=== PATIENT | female | born 1975 | race American Indian/Alaskan Native ===

== ENCOUNTER 2021-07-02 06:46 | Emergency (ER) | payer OTHER, SELFPAY ==
[2021-07-02 06:55] VITALS: BP 171/88; BP 171/89; PULSE 110; PULSE 111; RESP 20; TEMP 36.6; O2SAT 100; O2SAT 98
--- NOTE | 2021-07-02 07:23 | ED_ITS ---
HPI - General Adult General Chief complaint: Abdominal Pain Stated complaint: Very bad stomach pain Time Seen by Provider: 07/02/21 07:03 Source: patient Mode of arrival: Ambulatory Limitations: no limitations History of Present Illness HPI narrative: Patient is a 45-year-old female here for evaluation for jerrya matheus 1 week of left lower quadrant/lower abdomen discomfort. She is unsure as to what she was doing when the symptoms started however has been consistent over the past week. Had some nausea vomiting a couple days ago that is resolved. No urinary symptoms. Has had some diarrhea. She states that when she has a bowel movement her abdominal pain worsens. No vaginal bleeding. No prior abdominal surgeries. No chest pain. No shortness of breath. No headache. No vision changes. No rashes. No lower extremity swelling. Has been taking Tylenol for the discomfort without much improvement. Review of Systems Constitutional Constitutional: Denies headache(s) ENT Ears, Nose, Mouth, and Throat: Denies headache(s) Cardiovascular Cardiovascular: Reports system reviewed and no additional complaints, except as documented Respiratory Respiratory: Reports system reviewed and no additional complaints, except as documented Gastrointestinal Gastrointestinal: Reports as per HPI Genitourinary Genitourinary: Reports system reviewed and no additional complaints, except as documented Musculoskeletal Musculoskeletal: Reports system reviewed and no additional complaints, except as documented Integumentary/Breasts Skin/Breast: Reports system reviewed and no additional complaints, except as documented Neurologic Neurologic: Denies headache(s) Psychiatric Psychiatric: Reports system reviewed and no additional complaints, except as documented Hematologic/Lymphatic On Anticoagulants: No Allergic/Immunologic Allergic/Immunologic: Reports system reviewed and no additional complaints, except as documented Patient History Medical History Patient denies medical problems Social History Smoking Status: Never smoker Smoking Status: Never smoker alcohol intake frequency: a few times a month Substance Use Type: does not use Exam Initial Vital Signs Initial Vital Signs: Vital Signs Temperature 97.8 F 07/02/21 06:55 Pulse Rate 111 H 07/02/21 06:55 Respiratory Rate 20 07/02/21 06:55 Blood Pressure 171/88 H 07/02/21 06:55 Pulse Oximetry 100 07/02/21 06:55 Const General: cooperative, comfortable and well developed [facility] Head: normal to inspection and normocephalic Resp Effort & Inspection: normal respiratory effort Auscultation: clear to auscultation bilaterally Cardio Rate: regular rate Rhythm: regular rhythm GI Inspection: normal to inspection Palpation: soft, No firm and tender (Left lower abdomen than) Back/Spine/Pelvis Back: No CVA tenderness Skin General: no rashes or lesions noted Neuro General: patient alert, patient awake, patient oriented x3 and moves all extremities Extrem General: normal to inspection and capillary refill normal Psych Appearance: grossly normal and well kempt Course Orders Ordered: ED Orders 07/02/21 07:23 CT abdomen pelvis w con Stat 07/02/21 07:24 Complete Blood Count AUTO DIFF Stat Comprehensive Metabolic Panel Stat Lipase Stat Discontinued Medications Sodium Chloride (Normal Saline 0.9%) 1,000 mls @ 1,000 mls/hr IV BOLUS ONE Stop: 07/02/21 08:07 Last Admin: 07/02/21 08:11 Dose: 1,000 mls/hr Documented by: KAMILAH Vital Signs Vital signs: Vital Signs - 8 hr 07/02/21 06:55 Temperature 97.8 F Pulse Rate 111 H Respiratory Rate 20 Blood Pressure 171/88 H Pulse Oximetry 100 Medical Decision Making Lab Data Lab results reviewed: Yes I reviewed the patient's lab results. Result diagrams: 07/02/21 07:24 07/02/21 07:24 Labs: Lab Results 07/02/21 07/02/21 Range/Units 07:24 07:24 WBC 4.5 (4.5-11.0) X10^3/uL RBC 4.82 (4.0-5.2) X10^6/uL Hgb 14.3 (12.0-16.0) g/dL Hct 42.0 (36-46) % MCV 87.3 (80-100) fL MCH 29.8 (26-34) PG MCHC 34.1 (30-36) % RDW 13.0 (11.6-14.8) % Plt Count 238 (150-400) X10^3/uL Neut % (Auto) 45.9 L (50-75) % Lymph % (Auto) 42.8 H (25-40) % Ware % (Auto) 9.9 (3-14) % Eos % (Auto) 0.9 L (2-4) % Baso % (Auto) 0.5 (0-2) % Neut # (Auto) 2000 (2452-2108) /uL Lymph # (Auto) 1900 (2125-7008) /uL Ware # (Auto) 400 (0-900) /uL Eos # (Auto) 0 (0-450) /uL Baso # (Auto) 0 (0-100) /uL Sodium 131 L (137-145) mmol/L Potassium 3.8 (3.4-5.1) mmol/L Chloride 97 L (98-107) mmol/L Carbon Dioxide 24 (22-32) mmol/L BUN 10 (7-17) mg/dL Creatinine 0.50 L (0.52-1.04) mg/dL Estimated GFR > 60.0 (>60) mL/min BUN/Creatinine Ratio 20.0 (6-22) Glucose 116 H (70-100) mg/dL Calcium 8.6 (8.4-10.2) mg/dL Total Bilirubin 0.4 (0.2-1.3) mg/dL AST 48 H (14-36) IU/L ALT 45 H (<35) IU/L Alkaline Phosphatase 95 (38-126) U/L Total Protein 8.0 (6.3-8.2) g/dL Albumin 4.7 (3.5-5.0) g/dL Globulin 3.3 (1.7-4.1) g/dL Albumin/Globulin Ratio 1.4 (1.0-2.8) Lipase 142 (23-300) U/L Point of Care Testing Test Results Negative Urine Dip Bedside Urine Glucose Negative Bedside Urine Bilirubin - Negative Bedside Urine Ketone - Negative Urine Specific [place] 1.010 Bedside Urine Occult Blood +/- Bedside Urine pH 6.0 Bedside Urine Protein - Negative Bedside Urine Urobilinogen 0.2 Bedside Urine Nitrite - Negative Bedside Urine Leukocytes - Negative Esterase Point of care testing: Point of Care Testing Test Results Negative Urine Dip Bedside Urine Glucose Negative Bedside Urine Bilirubin - Negative Bedside Urine Ketone - Negative Urine Specific [place] 1.010 Bedside Urine Occult Blood +/- Bedside Urine pH 6.0 Bedside Urine Protein - Negative Bedside Urine Urobilinogen 0.2 Bedside Urine Nitrite - Negative Bedside Urine Leukocytes - Negative Esterase Imaging Data CT scan - abdomen/pelvis: Radiologist's Impression: [address] [id number] Scan ReportSigned Patient: Sayda Eller KMR#: [id number]: 1975Acct:[id number]/Sex: 45 / FDate of Service: 07/02/21Loc: EDAccession Number: [id number] Procedure: CT abdomen pelvis w con Ordering Provider: See Buchanan D.O. PROCEDURE: CT ABDOMEN PELVIS W CON INDICATIONS: Left-sided abdominal pain TECHNIQUE: After the administration of IV contrast, axial sections were acquired from the lung bases to the pubic symphysis. Coronal and sagittal reformats were performed. For radiation dose reduction, the following was used: automated exposure control, adjustment of mA and/or kV according to patient size. COMPARISON: None. FINDINGS: Image quality: Excellent. Lung bases: Punctate nodule at the left lung base. No pleural effusion. Small hiatal hernia. Heart: No significant findings. ABDOMEN: Liver: No focal lesion. Gallbladder: No calcified gallstones. Biliary ducts: No dilatation. Pancreas: Enhances symmetrically. Spleen: No splenomegaly. Adrenal Glands: No nodule. Kidneys and Ureters: No hydronephrosis. Stomach and Bowel: Stomach, small bowel loops, and colon are unremarkable. Normal appendix. Peritoneum: No abnormal intraperitoneal fluid. No free air. Ventral Wall: No hernia. Abdominal Nodes: No retroperitoneal or mesenteric adenopathy by size criteria. Vessels: Aorta and inferior vena cava are normal in size. PELVIS: Pelvic Organs: Suspect small ovarian cysts or dominant follicles. Bladder: Unremarkable. Pelvic Nodes: No enlarged lymph nodes. Miscellaneous: No inguinal hernias are seen. Bones: Bone island in the left iliac. IMPRESSION: No acute abnormality identified. No free fluid. Dictated by: Daniel Clark M.D. on 07/02/2021 at 7:46 Approved by: Daniel Clark M.D. on 07/02/2021 at 7:52 MDM Narrative Medical decision making narrative: Her labs are unremarkable. CT scan is unremarkable. No indication for surgical consultation. No indication for antibiotics. Upon further evaluation of the patient she does have a clumped rash in the skin in her left lower quadrant. There are no vesicles. There is no surrounding erythema. She did not know that this rash was there. It is in the general location of where she is having discomfort however her discomfort seems to be deeper in her abdomen and not on the skin. She has no rash along the same dermatome. I do have low suspicion for shingles based on the findings today. Even if it was shingles it does appear to be healing is there are no new crusting/vesicles. She has also had the symptoms for the past week so I feel that anti viral medications are not warranted in this situation. I did discuss all this with her. We discussed return precautions and follow-up instructions. She expressed understanding and agreement. Discharge Plan Departure Patient Disposition: Home Clinical Impression: Abdominal pain Instructions: DI for Abdominal Pain-Adult Activity Restrictions/Additional Instructions: The good news is is that the CT scan all of your labs today are unremarkable. There is no signs of any surgical issues. No signs of any infectious issues. I recommend that you try medicine called simethicone. You can purchase this [id number]. It may improve some of your symptoms. Contact your primary doctor for a follow-up. If your symptoms worsen or if the rash on your abdomen becomes worse you do need to be re-evaluated. Referrals: Michael Chua MD [Primary Care Provider] - Stand Alone Forms: Work Release Note
[2021-07-02 07:30] LABS: Add Manual Diff / Slide Review NO; Basophils Absolute Auto 0 /uL (0-100); Basophils Percent Auto 0.5 % (0-2); Eosinophils Absolute Auto 0 /uL (0-450); Eosinophils Percent Auto 0.9 % (2-4); Hemoglobin 14.3 g/dL (12.0-16.0); Lymphocytes Absolute Auto 1900 /uL (1100-4500); Lymphocytes Percent Auto 42.8 % (25-40); Mean Corpuscular HGB Conc 34.1 % (30-36); Mean Corpuscular Hemoglobin 29.8 PG (26-34); Mean Corpuscular Volume 87.3 fL (80-100); Monocytes Absolute Auto 400 /uL (0-900); Monocytes Percent Auto 9.9 % (3-14); Neutrophils Absolute Auto 2000 /uL (1500-7000); Neutrophils Percent Auto 45.9 % (50-75); Platelet Count 238 X10^3/uL (150-400); Red Blood Cell Count 4.82 X10^6/uL (4.0-5.2); White Blood Cell Count 4.5 X10^3/uL (4.5-11.0)
[2021-07-02 07:42] LABS: Alanine Aminotransferase 45 IU/L (<35); Albumin 4.7 g/dL (3.5-5.0); Albumin Globulin Ratio 1.4 (1.0-2.8); Alkaline Phosphatase 95 U/L (38-126); Aspartate Aminotransferase 48 IU/L (14-36); Bilirubin Total 0.4 mg/dL (0.2-1.3); Blood Urea Nitrogen 10 mg/dL (7-17); Calcium 8.6 mg/dL (8.4-10.2); Carbon Dioxide 24 mmol/L (22-32); Chloride 97 mmol/L (98-107); Estimated Glomerular Filt Rate > 60.0 mL/min (>60); Globulin 3.3 g/dL (1.7-4.1); Glucose 116 mg/dL (70-100); HEMOLYSIS < 15 (0-50); Lipase 142 U/L (23-300); Potassium 3.8 mmol/L (3.4-5.1); Sodium 131 mmol/L (137-145)
[2021-07-02] MEDS: SODIUM CHLORIDE 0.9% 1,000 ML 1000 ML IV (08:11)
[2021-07-02 09:20] VITALS: BP 140/68; PULSE 78; RESP 18; O2SAT 98
--- NOTE | 2021-07-07 19:32 | PC.NURSE ---
Late entry Normal Saline completed around 0900
== END 2021-07-02 09:28 | disposition home or self-care (01) ==
PROVIDERS: Emergency Provider Emergency Medicine; PCP Family Medicine
DX: R10.32 Left lower quadrant pain (principal)
CPT/HCPCS: 36415; 74177; 80053; 81003; 81025; 83690; 85025; 96360; 99284; Q9967

== ENCOUNTER 2022-04-17 10:39 | Emergency (ER) | payer OTHER, SELFPAY ==
[2022-04-17 10:40] VITALS: BP 169/98; PULSE 109; RESP 16; TEMP 36.6; O2SAT 97; BMI 26.8
[2022-04-17 11:33] LABS: Add Manual Diff / Slide Review NO; Basophils Absolute Auto 0 /uL (0-100); Basophils Percent Auto 0.5 % (0-2); Eosinophils Absolute Auto 0 /uL (0-450); Eosinophils Percent Auto 0.6 % (2-4); Hematocrit 43.7 % (36-46); Hemoglobin 15.4 g/dL (12.0-16.0); Lymphocytes Absolute Auto 700 /uL (1100-4500); Lymphocytes Percent Auto 24.3 % (25-40); Mean Corpuscular HGB Conc 35.2 % (30-36); Mean Corpuscular Hemoglobin 30.2 PG (26-34); Mean Corpuscular Volume 85.8 fL (80-100); Monocytes Absolute Auto 300 /uL (0-900); Monocytes Percent Auto 10.5 % (3-14); Neutrophils Absolute Auto 1900 /uL (1500-7000); Neutrophils Percent Auto 64.1 % (50-75); Platelet Count 119 X10^3/uL (150-400); Red Blood Cell Count 5.09 X10^6/uL (4.0-5.2); Red Cell Distribution Width 12.9 % (11.6-14.8); White Blood Cell Count 2.9 X10^3/uL (4.5-11.0)
[2022-04-17 11:36] LABS: Alanine Aminotransferase 83 IU/L (<35); Albumin 4.9 g/dL (3.5-5.0); Albumin Globulin Ratio 1.2 (1.0-2.8); Alkaline Phosphatase 84 U/L (38-126); Aspartate Aminotransferase 98 IU/L (14-36); BUN Creatinine Ratio 18.8 (6-22); Bilirubin Total 0.9 mg/dL (0.2-1.3); Blood Urea Nitrogen 13 mg/dL (7-17); Calcium 9.2 mg/dL (8.4-10.2); Carbon Dioxide 30 mmol/L (22-32); Chloride 93 mmol/L (98-107); Estimated Glomerular Filt Rate > 60 mL/min (>60); Glucose 124 mg/dL (70-100); HEMOLYSIS < 15 (0-50); Lipase 189 U/L (23-300); Potassium 3.5 mmol/L (3.4-5.1); Sodium 134 mmol/L (137-145); Total Protein 8.9 g/dL (6.3-8.2)
[2022-04-17 12:16] VITALS: BP 117/74; PULSE 96; RESP 16; O2SAT 99
--- NOTE | 2022-04-17 12:49 | ED.ABDPAIN ---
HPI - Abdominal Pain General Chief Complaint: Abdominal Pain Stated Complaint: lower abd pain Time Seen by Provider: 04/17/22 12:15 Source: EMS Mode of arrival: EMS History of Present Illness HPI narrative: Patient is a 46-year-old female without past medical history presenting with 11 days of ongoing lower abdominal pain. The more on the right than the left however she does have a rash on the left side which actually seems to be healing. She describes as a burning pain. She denies any diarrhea or constipation no nausea vomiting. She has not had any fever. Healing take a couple Tylenol as needed for pain. However due to ongoing pain in worse on the right side she came in. Related Data Allergies Allergy/AdvReac Type Severity Reaction Status Date / Time No Known Drug Allergies Allergy Verified 04/17/22 10:44 Review of Systems Review of Systems Narrative: GENERAL: Denies chills, fatigue, malaise, fever, sweats, travel HEENT: Denies sinus pain, ear pain, sore throat, difficulty swallowing, neck pain RESPIRATORY: Denies dyspnea, cough, wheezing, hemoptysis, sputum. CARDIOVASCULAR: Denies chest pain, palpitations, orthopnea, edema GASTROINTESTINAL: See HPI : Denies dysuria, frequency, incontinence, hematuria, urinary retention, flank pain. MUSCULOSKELETAL: Denies weakness, joint pain, or bony pain SKIN: See HPI NEUROLOGIC: Denies weakness, dizziness, headache, numbness, change in speech, confusion PSYCHIATRIC: No concerning psychosocial issues. 12 point review of systems is negative except for those stated above and HPI Patient History Medical History Patient denies medical problems Social History Smoking Status: Never smoker Smoking Status: Never smoker alcohol intake frequency: a few times a month Substance Use Type: does not use Exam Initial Vital Signs Initial Vital Signs: Vital Signs Temperature 97.8 F 04/17/22 10:40 Pulse Rate 109 H 04/17/22 10:40 Respiratory Rate 16 04/17/22 10:40 Blood Pressure 169/98 H 04/17/22 10:40 Pulse Oximetry 97 04/17/22 10:40 Oxygen Delivery Method 04/17/22 10:40 GENERAL: Alert well-appearing 46-year-old female and in no acute distress. HEENT: Head atraumatic,EOMI, pupils reactive, face symmetric, moist mucous membranes CARDIOVASCULAR: Regular rate and rhythm without murmurs, rubs or gallops. RESPIRATORY: Breath sounds equal bilaterally, no wheezes rales or rhonchi. ABDOMEN: Soft, tenderness right lower quadrant some across the lower abdomen : No CVA tenderness EXTREMITIES: Normal range of motion, no clubbing or edema. Neurovascularly intact NEUROLOGICAL: Alert and oriented x4.Normal gait and speech. SKIN: Scabbed over the psis killer like lesions in left lower quadrant no surrounding erythema does not cross midline Course Orders Ordered: ED Orders 04/17/22 10:44 EKG-12 Lead Stat 04/17/22 10:57 Complete Blood Count AUTO DIFF Stat Comprehensive Metabolic Panel Stat Lipase Stat 04/17/22 12:53 Urine Microscopic Stat 04/17/22 13:15 CT abdomen pelvis wo con Stat Discontinued Medications Ketorolac Tromethamine (Ketorolac 30 Mg/Ml Vial) 15 mg IV NOW ONE Stop: 04/17/22 14:06 Last Admin: 04/17/22 14:17 Dose: 15 mg Documented By: CTS Vital Signs Vital signs: Vital Signs - 8 hr 04/17/22 12:16 04/17/22 14:02 Pulse Rate 96 H 84 Respiratory Rate 16 16 Blood Pressure 117/74 130/58 L Pulse Oximetry 99 99 Oxygen Delivery Method Room Air MDM - Abdominal Pain Lab Data Result diagrams: 04/17/22 10:57 04/17/22 10:57 Labs: Lab Results 04/17/22 04/17/22 04/17/22 Range/Units 10:57 10:57 12:53 WBC 2.9 L (4.5-11.0) X10^3/uL RBC 5.09 (4.0-5.2) X10^6/uL Hgb 15.4 (12.0-16.0) g/dL Hct 43.7 (36-46) % MCV 85.8 (80-100) fL MCH 30.2 (26-34) PG MCHC 35.2 (30-36) % RDW 12.9 (11.6-14.8) % Plt Count 119 L (150-400) X10^3/uL Neut % (Auto) 64.1 (50-75) % Lymph % (Auto) 24.3 L (25-40) % [place] % (Auto) 10.5 (3-14) % Eos % (Auto) 0.6 L (2-4) % Baso % (Auto) 0.5 (0-2) % Neut # (Auto) 1900 (2338-3476) /uL Lymph # (Auto) 700 L (0295-7109) /uL [place] # (Auto) 300 (0-900) /uL Eos # (Auto) 0 (0-450) /uL Baso # (Auto) 0 (0-100) /uL Sodium 134 L (137-145) mmol/L Potassium 3.5 (3.4-5.1) mmol/L Chloride 93 L (98-107) mmol/L Carbon Dioxide 30 (22-32) mmol/L BUN 13 (7-17) mg/dL Creatinine 0.69 (0.52-1.04) mg/dL Estimated GFR > 60 (>60) mL/min BUN/Creatinine Ratio 18.8 (6-22) Glucose 124 H (70-100) mg/dL Calcium 9.2 (8.4-10.2) mg/dL Total Bilirubin 0.9 (0.2-1.3) mg/dL AST 98 H (14-36) IU/L ALT 83 H (<35) IU/L Alkaline Phosphatase 84 (38-126) U/L Total Protein 8.9 H (6.3-8.2) g/dL Albumin 4.9 (3.5-5.0) g/dL Globulin 4.0 (1.7-4.1) g/dL Albumin/Globulin Ratio 1.2 (1.0-2.8) Lipase 189 (23-300) U/L Urine RBC 1-5/hpf (0-5/HPF) Urine WBC None seen (0-5/HPF) Ur Squamous Epith Cells 0-1 /hpf (0-5/HPF) Urine Bacteria None seen (None) Ur Culture Indicated? Cult not indicated Point of care testing: Urine Dip Bedside Urine Glucose Negative Bedside Urine Bilirubin - Negative Bedside Urine Ketone - Negative Urine Specific [place] 1.010 Bedside Urine Occult Blood + Bedside Urine pH 6.0 Bedside Urine Protein - Negative Bedside Urine Urobilinogen - Negative Bedside Urine Nitrite - Negative Bedside Urine Leukocytes - Negative Esterase Imaging Data CT scan - abdomen/pelvis: Radiologist's Impression: CT Scan Report Signed Patient: Sayda Eller MR#: [id number] : 1975 Acct:[id number] Age/Sex: 46 / F Date of Service: 04/17/22 Loc: ED Accession Number: [id number] ?? Procedure: CT abdomen pelvis wo con Ordering Provider: Elzbieta Polanco D.O. PROCEDURE:? CT ABDOMEN PELVIS WO CON ? INDICATIONS:? rlq pain ? TECHNIQUE:? Noncontrast 5 mm thick sections acquired from the diaphragms to the symphysis.? 5 mm coronal and sagittal reformats were then performed.? For radiation dose reduction, the following was used:? automated exposure control, adjustment of mA and/or kV according to patient size.? ? COMPARISON:? [facility], CT, CT ABDOMEN PELVIS W CON, 07/02/2021, 7:46. ? FINDINGS:? Image quality:? Excellent.? ? ABDOMEN:? Lung bases:? Lung bases are clear.? Heart size is normal.? ? Solid organs:? Liver is normal in size.? Gallbladder is normal .? Pancreas is normal in contours.? Spleen is normal in size.? No adrenal nodules.? Kidneys are normal in size, without hydronephrosis or nephrolithiasis.? ? Peritoneum and bowel:? Unenhanced bowel loops demonstrate normal wall thickness and caliber.? No free fluid or air.? The appendix is normal.? ? Nodes and vessels:? No retroperitoneal or mesenteric adenopathy by size criteria.? Aorta and inferior vena cava are normal in caliber.? ? Miscellaneous:? No ventral hernias.? ? ? PELVIS:? Genitourinary:? Bladder wall thickness is normal.? ? Miscellaneous:? No inguinal hernias or adenopathy.? ? Bones:? No suspicious bony lesions.? No vertebral body compression fractures. Spine degenerative disc disease and facet arthropathy. ? ? IMPRESSION:? ? 1. No acute disease. ? 2. Appendix is normal.? ? 3. No free fluid or free air.? ? 4. No dilated loops of bowel or bowel wall thickening. ? ? ? Dictated by: Marlen Gatica MD, PhD on 04/17/2022 at 13:22 MDM Narrative Medical decision making narrative: Patient has a rash she says ongoing for at least 6 days it is highly suspicious for shingles. There are no new lesions is no underlying cellulitis but she still having pain and discomfort. Since is been ongoing for the last 6 days no indication to start antiviral medications. She is offered hydrocodone but declines at this time and like to just take Tylenol and ibuprofen. Abdominal CT is negative. WBC is slightly low at 2.9 suspicious for probable shingles. She does not appear septic. She is afebrile. Discharge Plan Departure Patient Disposition: Home Clinical Impression: Abdominal pain Herpes zoster Qualifiers: Herpes zoster complications: without complications Qualified Code(s): B02.9 - Zoster without complications Instructions: Shingles, DI for Abdominal Pain-Adult Activity Restrictions/Additional Instructions: *You have been diagnosed with shingles and abdominal pain *What to do: At this time out of window to benefit from antiviral medications for shingles. Recommend pain medication only with. Please monitor your abdominal pain. Today her CT is negative. May need to have your blood work recheck your WBC count today is slightly low at 2.9. *Continue to take medications as directed Tylenol 1000 mg every 8 hours if needed for [id number] pain Motrin 600 mg every 8 hours if needed for [id number] pain *Follow up with your primary care provider in 2-3 days or call [phone] *Return to ER if you should have increasing pain, worsening rash, fever or any new, worsening or concerning symptoms Referrals: Michael Chua MD [Primary Care Provider] - Visit Report Forms: Patient Portal/API
[2022-04-17 13:12] LABS: Bacteria Urine None Seen; Culture Indicated Urine Cult Not Indicated; RBC Urine 1-5/HPF (0-5/HPF); Squamous Epithelial Cell Urine 0-1 /HPF (0-5/HPF); WBC Urine None Seen (0-5/HPF)
--- NOTE | 2022-04-17 13:15 | DI.CT.S_ITS ---
PROCEDURE: CT ABDOMEN PELVIS WO CON INDICATIONS: rlq pain TECHNIQUE: Noncontrast 5 mm thick sections acquired from the diaphragms to the symphysis. 5 mm coronal and sagittal reformats were then performed. For radiation dose reduction, the following was used: automated exposure control, adjustment of mA and/or kV according to patient size. COMPARISON: [facility], CT, CT ABDOMEN PELVIS W CON, 07/02/2021, 7:46. FINDINGS: Image quality: Excellent. ABDOMEN: Lung bases: Lung bases are clear. Heart size is normal. Solid organs: Liver is normal in size. Gallbladder is normal . Pancreas is normal in contours. Spleen is normal in size. No adrenal nodules. Kidneys are normal in size, without hydronephrosis or nephrolithiasis. Peritoneum and bowel: Unenhanced bowel loops demonstrate normal wall thickness and caliber. No free fluid or air. The appendix is normal. Nodes and vessels: No retroperitoneal or mesenteric adenopathy by size criteria. Aorta and inferior vena cava are normal in caliber. Miscellaneous: No ventral hernias. PELVIS: Genitourinary: Bladder wall thickness is normal. Miscellaneous: No inguinal hernias or adenopathy. Bones: No suspicious bony lesions. No vertebral body compression fractures. Spine degenerative disc disease and facet arthropathy. IMPRESSION: 1. No acute disease. 2. Appendix is normal. 3. No free fluid or free air. 4. No dilated loops of bowel or bowel wall thickening. Dictated by: Marlen Gatica MD, PhD on 04/17/2022 at 13:22 Approved by: Marlen Gatica MD, PhD on 04/17/2022 at 13:27
[2022-04-17 14:02] VITALS: BP 130/58; PULSE 84; RESP 16; O2SAT 99
[2022-04-17] MEDS: KETOROLAC 30 MG/ML VIAL 15 MG IV (14:17)
== END 2022-04-17 14:19 | disposition home or self-care (01) ==
PROVIDERS: Emergency Provider Emergency Medicine; PCP Family Medicine
DX: R10.9 Unspecified abdominal pain (principal); B02.9 Zoster without complications
CPT/HCPCS: 36415; 74176; 80053; 81003; 81015; 83690; 85025; 93005; 96374; 99284; J1885

== ENCOUNTER 2022-12-26 10:25 | Emergency (ER) | payer OTHER, SELFPAY ==
[2022-12-26] VITALS (19 sets, daily range): BP systolic 113–161; BP diastolic 65–98; PULSE 64–97; RESP 16; TEMP 36.7; O2SAT 95–99; BMI 28.7
[2022-12-26 11:34] LABS: Add Manual Diff / Slide Review NO; Basophils Absolute Auto 0 /uL (0-100); Basophils Percent Auto 0.6 % (0-2); Eosinophils Absolute Auto 0 /uL (0-450); Eosinophils Percent Auto 0.4 % (2-4); Hematocrit 42.2 % (36-46); Hemoglobin 14.4 g/dL (12.0-16.0); Lymphocytes Absolute Auto 1100 /uL (1100-4500); Lymphocytes Percent Auto 27.2 % (25-40); Mean Corpuscular HGB Conc 34.1 % (30-36); Mean Corpuscular Hemoglobin 30.6 PG (26-34); Mean Corpuscular Volume 89.7 fL (80-100); Monocytes Absolute Auto 300 /uL (0-900); Monocytes Percent Auto 7.6 % (3-14); Neutrophils Absolute Auto 2600 /uL (1500-7000); Neutrophils Percent Auto 64.2 % (50-75); Platelet Count 238 X10^3/uL (150-400); Red Blood Cell Count 4.71 X10^6/uL (4.0-5.2); Red Cell Distribution Width 13.2 % (11.6-14.8); White Blood Cell Count 4.1 X10^3/uL (4.5-11.0)
[2022-12-26 11:52] LABS: Appearance Urine UA CLEAR; Bilirubin Urine UA NEGATIVE (NEGATIVE); Color Urine UA YELLOW; Glucose Urine UA NEGATIVE (Negative); Ketones Urine UA NEGATIVE (NEGATIVE); Leukocyte Esterase Urine UA NEGATIVE (NEGATIVE); Nitrite Urine UA NEGATIVE (Negative); Occult Blood Urine UA TRACE-INTACT (Negative); Protein Urine UA NEGATIVE (Negative); Specific Gravity Urine UA <=1.005 (1.000-1.035); Urobilinogen Urine UA 0.2 E.U./dL (0.2)
[2022-12-26 11:54] LABS: Alanine Aminotransferase 23 IU/L (<35); Albumin 4.6 g/dL (3.5-5.0); Albumin Globulin Ratio 1.2 (1.0-2.8); Alkaline Phosphatase 66 U/L (38-126); Aspartate Aminotransferase 35 IU/L (14-36); Bilirubin Total 0.9 mg/dL (0.2-1.3); Blood Urea Nitrogen 11 mg/dL (7-17); Calcium 8.4 mg/dL (8.4-10.2); Carbon Dioxide 24 mmol/L (22-32); Chloride 99 mmol/L (98-107); Estimated Glomerular Filt Rate > 60 mL/min (>60); Globulin 3.7 g/dL (1.7-4.1); Glucose 106 mg/dL (70-100); HEMOLYSIS 113 (0-50); Lipase 72 U/L (23-300); Potassium 4.3 mmol/L (3.4-5.1); Sodium 133 mmol/L (137-145); Total Protein 8.3 g/dL (6.3-8.2)
[2022-12-26 11:59] LABS: RBC Urine 0-1/HPF (0-5/HPF); WBC Urine None Seen (0-5/HPF)
[2022-12-26 12:00] LABS: Amorphous Sediment Urine 1+; Bacteria Urine None Seen; Culture Indicated Urine Cult Not Indicated; Renal Epithelial Cells Urine 0-1/HPF (0-1/HPF); Squamous Epithelial Cell Urine 0-1 /HPF (0-5/HPF); Transitional Epi Cells Urine 0-1/HPF (0-5/HPF)
[2022-12-26 12:04] LABS: COVID19 -Nasal RAPID Negative (Negative)
--- NOTE | 2022-12-26 12:35 | DI.CT.S_ITS ---
PROCEDURE: CT ABDOMEN PELVIS W CON INDICATIONS: ?appy;?kidney stone; RLQ pain TECHNIQUE: After the administration of intravenous contrast, axial sections acquired from the lung bases to the pubic symphysis. Coronal and sagittal reformats were performed. For radiation dose reduction, the following was used: automated exposure control, adjustment of mA and/or kV according to patient size. COMPARISON: [facility], CT, CT ABDOMEN PELVIS W CON, 07/02/2021, 7:46. FINDINGS: Image quality: Excellent. Lung bases: Unremarkable. Heart: No significant findings. ABDOMEN: Liver: Unremarkable. Gallbladder: Cholelithiasis without wall thickening or adjacent fat stranding to suggest acute cholecystitis. Biliary ducts: Unremarkable. Pancreas: Unremarkable. Spleen: Unremarkable. Adrenal Glands: Unremarkable. Kidneys and Ureters: Unremarkable. Stomach and Bowel: Stomach, small bowel loops, and colon are unremarkable. Peritoneum: No abnormal intraperitoneal fluid. No free air. Ventral Wall: No hernias. Abdominal Nodes: No retroperitoneal or mesenteric adenopathy by size criteria. Vessels: Aorta and inferior vena cava are normal in size. PELVIS: Pelvic Organs: Right-sided corpus luteum. Bladder: Unremarkable. Pelvic Nodes: No enlarged lymph nodes. Miscellaneous: No hernias are seen. Bones: Unremarkable. IMPRESSION: 1. No acute abnormality. No nephrolithiasis. 2. Right-sided corpus luteum, which does not require follow-up. Dictated by: Jim Caballero M.D. on 12/26/2022 at 13:24 Approved by: Jim Caballero M.D. on 12/26/2022 at 13:27
[2022-12-26] MEDS: ONDANSETRON 4 MG/2 ML INJ IV (12:49)
[2022-12-26] MEDS: KETOROLAC 30 MG/ML VIAL 15 MG IV (12:49)
--- NOTE | 2022-12-26 12:54 | ED.ABDPAIN ---
HPI - Abdominal Pain <Mai Alonzo PA-C - Last Filed: 12/26/22 20:04> General Chief Complaint: Abdominal Pain Stated Complaint: appendicitis x7 ref from PCP Time Seen by Provider: 12/26/22 12:02 Source: patient Mode of arrival: Ambulatory History of Present Illness HPI narrative: 47-year-old female with no reported past medical history presents to the ED with 1 week of right lower quadrant pain. Patient endorses fever, chills, right lower quadrant pain, nausea, vomiting, diarrhea. Patient denies chest pain, shortness of breath, lightheadedness, dizziness, syncope, dysuria. Patient was seen by her PCP this morning, sent to the ED due to suspicion for appendicitis. Related Data Previous Rx's Medication Instructions Recorded ondansetron 4 mg disintegrating 4 mg PO Q8H PRN nausea and 12/26/22 tablet vomiting #14 tabs Allergies Allergy/AdvReac Type Severity Reaction Status Date / Time No Known Drug Allergies Allergy Verified 12/26/22 10:52 Review of Systems <Mai Alonzo PA-C - Last Filed: 12/26/22 20:04> Review of Systems ROS Unobtainable: All systems reviewed & are unremarkable except as noted in HPI and below Constitutional Constitutional: Reports chills, Denies fatigue, Reports fever(s), Denies frequent falls, Denies lethargy and Denies weakness Eyes Eyes: Denies change in vision, Denies eye discharge, Denies irritation and Denies loss of vision ENT Ears, Nose, Mouth, and Throat: Denies change in voice, Denies dizziness, Denies neck pain, Denies sore throat and Denies throat swelling Cardiovascular Cardiovascular: Denies chest pain, Denies irregular heart rhythm, Denies lightheadedness, Denies palpitations, Denies dyspnea, Denies dyspnea on exertion and Denies orthopnea Respiratory Respiratory: Denies cough, Denies dyspnea, Denies dyspnea on exertion and Denies wheezing Gastrointestinal Gastrointestinal: Reports abdominal pain, Denies change in bowel habits, Reports diarrhea, Reports nausea and Reports vomiting Genitourinary Genitourinary: Denies hematuria, Denies flank pain, Denies urinary incontinence and Denies urinary urgency Musculoskeletal Musculoskeletal: Denies back pain, Denies muscle weakness, Denies neck pain, Denies numbness and Denies tingling Integumentary/Breasts Skin/Breast: Denies pruritus, Denies erythema, Denies rash and Denies wounds Neurologic Neurologic: Denies behavioral changes, Denies confusion, Denies dizziness, Denies frequent falls, Denies loss of vision, Denies numbness, Denies tingling and Denies weakness Psychiatric Psychiatric: Denies anxiety, Denies behavioral changes, Denies confusion, Denies depression, Denies homicidal ideation and Denies suicidal ideation Endocrine Endocrine: Denies fatigue, Denies flushing and Denies palpitations Hematologic/Lymphatic Hematologic/Lymphatic: Denies easy bruising Allergic/Immunologic Allergic/Immunologic: Denies urticaria, Denies throat swelling and Denies wheezing Patient History <Mai Alonzo PA-C - Last Filed: 12/26/22 20:04> Medical History Patient denies medical problems Social History Smoking Status: Never smoker Smoking Status: Never smoker alcohol intake frequency: a few times a month Substance Use Type: does not use Exam <Mai Alonzo PA-C - Last Filed: 12/26/22 20:04> Narrative Exam Narrative: Const General:?cooperative, healthy appearing and comfortable [facility] Head:?normal to inspection Ears:?hearing grossly normal bilaterally Nose:?external nose normal Face and sinus:?normal facial exam and sinuses nontender Mouth:?oral mucosae normal Throat:?posterior oropharynx normal Eyes General:?appearance normal, both eyes and all related structures Neck Neck:?normal visual inspection and no lymphadenopathy noted Resp Effort & Inspection:?normal respiratory effort Auscultation:?clear to auscultation bilaterally Cardio Rate:?regular rate Rhythm:?regular rhythm GI Abdomen is soft, nondistended. Abdomen is tender to palpation in the right lower quadrant. Neg psoas. Positive obturator. No CVA tenderness. Neuro General:?patient alert, patient awake and patient oriented x3 Initial Vital Signs Initial Vital Signs: Vital Signs Temperature 98.1 F 12/26/22 10:50 Pulse Rate 97 H 12/26/22 10:50 Respiratory Rate 16 12/26/22 10:50 Blood Pressure 131/98 H 12/26/22 10:50 Pulse Oximetry 97 12/26/22 10:50 Oxygen Delivery Method Room Air 12/26/22 10:50 <Mikal Bray MD - Last Filed: 01/02/23 08:11> Initial Vital Signs Initial Vital Signs: Vital Signs Temperature 98.1 F 12/26/22 10:50 Pulse Rate 97 H 12/26/22 10:50 Respiratory Rate 16 12/26/22 10:50 Blood Pressure 131/98 H 12/26/22 10:50 Pulse Oximetry 97 12/26/22 10:50 Oxygen Delivery Method Room Air 12/26/22 10:50 Course <Mai Alonzo PA-C - Last Filed: 12/26/22 20:04> Orders Ordered: Discontinued Medications Sodium Chloride (Normal Saline 0.9%) 1,000 mls @ 1,000 mls/hr IV BOLUS ONE Stop: 12/26/22 13:58 Last Infusion: 12/26/22 14:43 Dose: 0 mls/hr Documented By: Admin: 12/26/22 13:13 Dose: 1,000 mls/hr Documented By: OMAR Ketorolac Tromethamine (Ketorolac 30 Mg/Ml Vial) 15 mg IV NOW ONE Stop: 12/26/22 12:28 Last Admin: 12/26/22 12:49 Dose: 15 mg Documented By: OMAR Morphine Sulfate (Morphine 4 Mg/Ml Inj) 4 mg IV NOW ONE Stop: 12/26/22 15:58 Last Admin: 12/26/22 16:08 Dose: 4 mg Documented By: OMAR Ondansetron HCl (Ondansetron 4 Mg/2 Ml Inj) 4 mg IV NOW PRN PRN Reason: Nausea And Vomiting Last Admin: 12/26/22 12:49 Dose: 4 mg Documented By: OMAR Vital Signs Vital signs: Vital Signs - 8 hr 12/26/22 12:30 12/26/22 12:30 12/26/22 12:41 Pulse Rate 88 70 Blood Pressure 141/70 H Pulse Oximetry 95 96 Oxygen Delivery Method 12/26/22 12:41 12/26/22 13:00 12/26/22 13:01 Pulse Rate 71 69 Blood Pressure 137/65 Pulse Oximetry 97 96 Oxygen Delivery Method 12/26/22 13:01 12/26/22 13:20 12/26/22 13:20 Pulse Rate 74 Blood Pressure 136/95 H 129/83 Pulse Oximetry 97 Oxygen Delivery Method 12/26/22 13:30 12/26/22 13:30 12/26/22 14:00 Pulse Rate 65 Blood Pressure 130/87 134/77 Pulse Oximetry 97 Oxygen Delivery Method 12/26/22 14:00 12/26/22 16:11 12/26/22 16:12 Pulse Rate 66 75 Blood Pressure 131/83 Pulse Oximetry 98 97 Oxygen Delivery Method 12/26/22 16:12 12/26/22 16:30 12/26/22 16:30 Pulse Rate 67 74 Blood Pressure 141/98 H Pulse Oximetry 97 95 Oxygen Delivery Method 12/26/22 17:00 12/26/22 17:00 12/26/22 17:30 Pulse Rate 68 Blood Pressure 121/79 123/76 Pulse Oximetry 96 Oxygen Delivery Method Room Air 12/26/22 17:30 12/26/22 18:00 12/26/22 18:00 Pulse Rate 66 66 Blood Pressure 130/84 Pulse Oximetry 96 96 Oxygen Delivery Method 12/26/22 18:30 12/26/22 18:31 12/26/22 18:31 Pulse Rate 65 64 Blood Pressure 113/72 Pulse Oximetry 95 95 Oxygen Delivery Method <Mikal Bray MD - Last Filed: 01/02/23 08:11> Orders Ordered: Discontinued Medications Sodium Chloride (Normal Saline 0.9%) 1,000 mls @ 1,000 mls/hr IV BOLUS ONE Stop: 12/26/22 13:58 Last Infusion: 12/26/22 14:43 Dose: 0 mls/hr Documented By: Admin: 12/26/22 13:13 Dose: 1,000 mls/hr Documented By: OMAR Ketorolac Tromethamine (Ketorolac 30 Mg/Ml Vial) 15 mg IV NOW ONE Stop: 12/26/22 12:28 Last Admin: 12/26/22 12:49 Dose: 15 mg Documented By: OMAR Morphine Sulfate (Morphine 4 Mg/Ml Inj) 4 mg IV NOW ONE Stop: 12/26/22 15:58 Last Admin: 12/26/22 16:08 Dose: 4 mg Documented By: OMAR Ondansetron HCl (Ondansetron 4 Mg/2 Ml Inj) 4 mg IV NOW PRN PRN Reason: Nausea And Vomiting Last Admin: 12/26/22 12:49 Dose: 4 mg Documented By: OMAR Vital Signs Vital signs: Vital Signs - 8 hr 12/26/22 12:30 12/26/22 12:30 12/26/22 12:41 Pulse Rate 88 70 Blood Pressure 141/70 H Pulse Oximetry 95 96 Oxygen Delivery Method 12/26/22 12:41 12/26/22 13:00 12/26/22 13:01 Pulse Rate 71 69 Blood Pressure 137/65 Pulse Oximetry 97 96 Oxygen Delivery Method 12/26/22 13:01 12/26/22 13:20 12/26/22 13:20 Pulse Rate 74 Blood Pressure 136/95 H 129/83 Pulse Oximetry 97 Oxygen Delivery Method 12/26/22 13:30 12/26/22 13:30 12/26/22 14:00 Pulse Rate 65 Blood Pressure 130/87 134/77 Pulse Oximetry 97 Oxygen Delivery Method 12/26/22 14:00 12/26/22 16:11 12/26/22 16:12 Pulse Rate 66 75 Blood Pressure 131/83 Pulse Oximetry 98 97 Oxygen Delivery Method 12/26/22 16:12 12/26/22 16:30 12/26/22 16:30 Pulse Rate 67 74 Blood Pressure 141/98 H Pulse Oximetry 97 95 Oxygen Delivery Method 12/26/22 17:00 12/26/22 17:00 12/26/22 17:30 Pulse Rate 68 Blood Pressure 121/79 123/76 Pulse Oximetry 96 Oxygen Delivery Method Room Air 12/26/22 17:30 12/26/22 18:00 12/26/22 18:00 Pulse Rate 66 66 Blood Pressure 130/84 Pulse Oximetry 96 96 Oxygen Delivery Method 12/26/22 18:30 12/26/22 18:31 12/26/22 18:31 Pulse Rate 65 64 Blood Pressure 113/72 Pulse Oximetry 95 95 Oxygen Delivery Method MDM - Abdominal Pain <Mai Alonzo PA-C - Last Filed: 12/26/22 20:04> Lab Data 12/26/22 11:20 12/26/22 11:20 Labs: Lab Results 12/26/22 12/26/22 12/26/22 Range/Units 11:00 11:20 11:20 WBC 4.1 L (4.5-11.0) X10^3/uL RBC 4.71 (4.0-5.2) X10^6/uL Hgb 14.4 (12.0-16.0) g/dL Hct 42.2 (36-46) % MCV 89.7 (80-100) fL MCH 30.6 (26-34) PG MCHC 34.1 (30-36) % RDW 13.2 (11.6-14.8) % Plt Count 238 (150-400) X10^3/uL Neut % (Auto) 64.2 (50-75) % Lymph % (Auto) 27.2 (25-40) % [place] % (Auto) 7.6 (3-14) % Eos % (Auto) 0.4 L (2-4) % Baso % (Auto) 0.6 (0-2) % Neut # (Auto) 2600 (2761-2703) /uL Lymph # (Auto) 1100 (3530-9613) /uL [place] # (Auto) 300 (0-900) /uL Eos # (Auto) 0 (0-450) /uL Baso # (Auto) 0 (0-100) /uL Sodium 133 L (137-145) mmol/L Potassium 4.3 (3.4-5.1) mmol/L Chloride 99 (98-107) mmol/L Carbon Dioxide 24 (22-32) mmol/L BUN 11 (7-17) mg/dL Creatinine 0.50 L (0.52-1.04) mg/dL Estimated GFR > 60 (>60) mL/min BUN/Creatinine Ratio 22.0 (6-22) Glucose 106 H (70-100) mg/dL Calcium 8.4 (8.4-10.2) mg/dL Total Bilirubin 0.9 (0.2-1.3) mg/dL AST 35 (14-36) IU/L ALT 23 (<35) IU/L Alkaline Phosphatase 66 (38-126) U/L Total Protein 8.3 H (6.3-8.2) g/dL Albumin 4.6 (3.5-5.0) g/dL Globulin 3.7 (1.7-4.1) g/dL Albumin/Globulin Ratio 1.2 (1.0-2.8) Lipase 72 (23-300) U/L Urine Color Yellow Urine Appearance Clear Urine pH 6.0 (4.5-8.0) Ur Specific [place] <=1.005 (1.000-1.035) Urine Protein Negative (Negative) Urine Glucose (UA) Negative (Negative) g/dL Urine Ketones Negative (NEGATIVE) Urine Occult Blood Trace-intact (Negative) Urine Nitrate Negative (Negative) Urine Bilirubin Negative (NEGATIVE) Urine Urobilinogen 0.2 (0.2) E.U./dL Ur Leukocyte Esterase Negative (NEGATIVE) Urine RBC 0-1/hpf (0-5/HPF) Urine WBC None seen (0-5/HPF) Ur Squamous Epith Cells 0-1 /hpf (0-5/HPF) Ur Transition Epith Cell 0-1/hpf (0-5/HPF) Ur Renal Epithelial Cell 0-1/hpf (0-1/HPF) Amorphous Sediment 1+ Urine Bacteria None seen (None) Ur Culture Indicated? Cult not indicated SARS-CoV-2 (PCR) (Negative) 12/26/22 Range/Units 11:20 WBC (4.5-11.0) X10^3/uL RBC (4.0-5.2) X10^6/uL Hgb (12.0-16.0) g/dL Hct (36-46) % MCV (80-100) fL MCH (26-34) PG MCHC (30-36) % RDW (11.6-14.8) % Plt Count (150-400) X10^3/uL Neut % (Auto) (50-75) % Lymph % (Auto) (25-40) % [place] % (Auto) (3-14) % Eos % (Auto) (2-4) % Baso % (Auto) (0-2) % Neut # (Auto) (7499-9505) /uL Lymph # (Auto) (1180-6850) /uL [place] # (Auto) (0-900) /uL Eos # (Auto) (0-450) /uL Baso # (Auto) (0-100) /uL Sodium (137-145) mmol/L Potassium (3.4-5.1) mmol/L Chloride (98-107) mmol/L Carbon Dioxide (22-32) mmol/L BUN (7-17) mg/dL Creatinine (0.52-1.04) mg/dL Estimated GFR (>60) mL/min BUN/Creatinine Ratio (6-22) Glucose (70-100) mg/dL Calcium (8.4-10.2) mg/dL Total Bilirubin (0.2-1.3) mg/dL AST (14-36) IU/L ALT (<35) IU/L Alkaline Phosphatase (38-126) U/L Total Protein (6.3-8.2) g/dL Albumin (3.5-5.0) g/dL Globulin (1.7-4.1) g/dL Albumin/Globulin Ratio (1.0-2.8) Lipase (23-300) U/L Urine Color Urine Appearance Urine pH (4.5-8.0) Ur Specific [place] (1.000-1.035) Urine Protein (Negative) Urine Glucose (UA) (Negative) g/dL Urine Ketones (NEGATIVE) Urine Occult Blood (Negative) Urine Nitrate (Negative) Urine Bilirubin (NEGATIVE) Urine Urobilinogen (0.2) E.U./dL Ur Leukocyte Esterase (NEGATIVE) Urine RBC (0-5/HPF) Urine WBC (0-5/HPF) Ur Squamous Epith Cells (0-5/HPF) Ur Transition Epith Cell (0-5/HPF) Ur Renal Epithelial Cell (0-1/HPF) Amorphous Sediment Urine Bacteria (None) Ur Culture Indicated? SARS-CoV-2 (PCR) Negative (Negative) Point of care testing: Point of Care Testing Test Results Negative Urine Dip Bedside Urine Glucose Negative Bedside Urine Bilirubin - Negative Bedside Urine Ketone - Negative Urine Specific [place] 1.010 Bedside Urine Occult Blood +/- Bedside Urine pH 6.0 Bedside Urine Protein - Negative Bedside Urine Urobilinogen - Negative Bedside Urine Nitrite - Negative Bedside Urine Leukocytes - Negative Esterase MDM Narrative Medical decision making narrative: 47-year-old female with no reported past medical history presents to the ED with 1 week of right lower quadrant pain. Concern for appendicitis versus nephrolithiasis versus UTI versus pyelonephritis versus other intra-abdominal pathology versus other. Will obtain labs, UA, urine hCG, CT abdomen pelvis. Will treat symptoms with ketorolac, Zofran, IV fluids. Symptoms well controlled with medications. Labs within normal limits. UA without UTI. No acute abnormality on CT abdomen pelvis. Radiologist was called and clarified over the telephone that the appendix appeared normal on the CT scan, with no fat stranding. Ultrasound pelvic does not show any pathologic free abdominal or pelvic fluid. Left ovary was not visualized. No adnexal mass. Ultrasound abdomen shows cholelithiasis without any signs of cholecystitis. Findings were discussed with patient. Patient agrees to return to the ED if her symptoms worsen. Patient agrees to follow-up with her PCP tomorrow. Medical records reviewed: Yes <Mikal Bray MD - Last Filed: 01/02/23 08:11> Lab Data Labs: Lab Results 12/26/22 12/26/22 12/26/22 Range/Units 11:00 11:20 11:20 WBC 4.1 L (4.5-11.0) X10^3/uL RBC 4.71 (4.0-5.2) X10^6/uL Hgb 14.4 (12.0-16.0) g/dL Hct 42.2 (36-46) % MCV 89.7 (80-100) fL MCH 30.6 (26-34) PG MCHC 34.1 (30-36) % RDW 13.2 (11.6-14.8) % Plt Count 238 (150-400) X10^3/uL Neut % (Auto) 64.2 (50-75) % Lymph % (Auto) 27.2 (25-40) % [place] % (Auto) 7.6 (3-14) % Eos % (Auto) 0.4 L (2-4) % Baso % (Auto) 0.6 (0-2) % Neut # (Auto) 2600 (2728-7820) /uL Lymph # (Auto) 1100 (2856-2570) /uL [place] # (Auto) 300 (0-900) /uL Eos # (Auto) 0 (0-450) /uL Baso # (Auto) 0 (0-100) /uL Sodium 133 L (137-145) mmol/L Potassium 4.3 (3.4-5.1) mmol/L Chloride 99 (98-107) mmol/L Carbon Dioxide 24 (22-32) mmol/L BUN 11 (7-17) mg/dL Creatinine 0.50 L (0.52-1.04) mg/dL Estimated GFR > 60 (>60) mL/min BUN/Creatinine Ratio 22.0 (6-22) Glucose 106 H (70-100) mg/dL Calcium 8.4 (8.4-10.2) mg/dL Total Bilirubin 0.9 (0.2-1.3) mg/dL AST 35 (14-36) IU/L ALT 23 (<35) IU/L Alkaline Phosphatase 66 (38-126) U/L Total Protein 8.3 H (6.3-8.2) g/dL Albumin 4.6 (3.5-5.0) g/dL Globulin 3.7 (1.7-4.1) g/dL Albumin/Globulin Ratio 1.2 (1.0-2.8) Lipase 72 (23-300) U/L Urine Color Yellow Urine Appearance Clear Urine pH 6.0 (4.5-8.0) Ur Specific [place] <=1.005 (1.000-1.035) Urine Protein Negative (Negative) Urine Glucose (UA) Negative (Negative) g/dL Urine Ketones Negative (NEGATIVE) Urine Occult Blood Trace-intact (Negative) Urine Nitrate Negative (Negative) Urine Bilirubin Negative (NEGATIVE) Urine Urobilinogen 0.2 (0.2) E.U./dL Ur Leukocyte Esterase Negative (NEGATIVE) Urine RBC 0-1/hpf (0-5/HPF) Urine WBC None seen (0-5/HPF) Ur Squamous Epith Cells 0-1 /hpf (0-5/HPF) Ur Transition Epith Cell 0-1/hpf (0-5/HPF) Ur Renal Epithelial Cell 0-1/hpf (0-1/HPF) Amorphous Sediment 1+ Urine Bacteria None seen (None) Ur Culture Indicated? Cult not indicated SARS-CoV-2 (PCR) (Negative) 12/26/22 Range/Units 11:20 WBC (4.5-11.0) X10^3/uL RBC (4.0-5.2) X10^6/uL Hgb (12.0-16.0) g/dL Hct (36-46) % MCV (80-100) fL MCH (26-34) PG MCHC (30-36) % RDW (11.6-14.8) % Plt Count (150-400) X10^3/uL Neut % (Auto) (50-75) % Lymph % (Auto) (25-40) % [place] % (Auto) (3-14) % Eos % (Auto) (2-4) % Baso % (Auto) (0-2) % Neut # (Auto) (0260-5230) /uL Lymph # (Auto) (3933-8826) /uL [place] # (Auto) (0-900) /uL Eos # (Auto) (0-450) /uL Baso # (Auto) (0-100) /uL Sodium (137-145) mmol/L Potassium (3.4-5.1) mmol/L Chloride (98-107) mmol/L Carbon Dioxide (22-32) mmol/L BUN (7-17) mg/dL Creatinine (0.52-1.04) mg/dL Estimated GFR (>60) mL/min BUN/Creatinine Ratio (6-22) Glucose (70-100) mg/dL Calcium (8.4-10.2) mg/dL Total Bilirubin (0.2-1.3) mg/dL AST (14-36) IU/L ALT (<35) IU/L Alkaline Phosphatase (38-126) U/L Total Protein (6.3-8.2) g/dL Albumin (3.5-5.0) g/dL Globulin (1.7-4.1) g/dL Albumin/Globulin Ratio (1.0-2.8) Lipase (23-300) U/L Urine Color Urine Appearance Urine pH (4.5-8.0) Ur Specific [place] (1.000-1.035) Urine Protein (Negative) Urine Glucose (UA) (Negative) g/dL Urine Ketones (NEGATIVE) Urine Occult Blood (Negative) Urine Nitrate (Negative) Urine Bilirubin (NEGATIVE) Urine Urobilinogen (0.2) E.U./dL Ur Leukocyte Esterase (NEGATIVE) Urine RBC (0-5/HPF) Urine WBC (0-5/HPF) Ur Squamous Epith Cells (0-5/HPF) Ur Transition Epith Cell (0-5/HPF) Ur Renal Epithelial Cell (0-1/HPF) Amorphous Sediment Urine Bacteria (None) Ur Culture Indicated? SARS-CoV-2 (PCR) Negative (Negative) Point of care testing: Point of Care Testing Test Results Negative Urine Dip Bedside Urine Glucose Negative Bedside Urine Bilirubin - Negative Bedside Urine Ketone - Negative Urine Specific [place] 1.010 Bedside Urine Occult Blood +/- Bedside Urine pH 6.0 Bedside Urine Protein - Negative Bedside Urine Urobilinogen - Negative Bedside Urine Nitrite - Negative Bedside Urine Leukocytes - Negative Esterase Discharge Plan Departure Patient Disposition: Home Clinical Impression: Abdominal pain Instructions: DI for Abdominal Pain-Adult Activity Restrictions/Additional Instructions: You were evaluated in the ED today for right lower abdominal pain. Your labs, urine, CT abdomen pelvis, ultrasound pelvic, ultrasound abdomen did not show any acute findings to explain your symptoms. The radiologist clarified that your appendix appeared normal in the CT. You have some gallstones in the gallbladder, however your gallbladder is not inflamed. It is possible that you might have a developing condition that did not show on the imaging today. Please monitor your symptoms and return to the ED if your pain worsens, you are persistently vomiting, you develop fevers and chills. You may take Tylenol, ibuprofen, Zofran for your symptoms. Zofran has been sent to [facility]. Please follow-up with your PCP as soon as possible. Prescriptions: New ondansetron 4 mg tablet,disintegrating 4 mg PO Q8H PRN (Reason: nausea and vomiting) Qty: 14 0RF Referrals: Michael Chua MD [Primary Care Provider] - Stand Alone Forms: Patient Portal/API <Mikal Bray MD - Last Filed: 01/02/23 08:11> Cosign ED Attending Cosenzoature Attestation: I was immediately available in the department for consultation. ?This documentation has been reviewed and I agree with assessment and plan. Supervised by Mikal Bray MD
[2022-12-26] MEDS: SODIUM CHLORIDE 0.9% 1,000 ML 1000 ML IV (13:13)
--- NOTE | 2022-12-26 13:42 | DI.US.S_ITS ---
PROCEDURE: US PELVIC COMPLETE INDICATIONS: RLQ pain TECHNIQUE: Real-time scanning was performed of the pelvic organs, with image documentation. Additional endovaginal scanning was necessary due to incomplete visualization of the adnexal and endometrial structures by transabdominal scanning. COMPARISON: Same-day CT. FINDINGS: Uterus: Uterus is anteverted and normal in size at 7.8 x 4.7 x 3.7 cm. The myometrium is homogeneous. The endometrium measures 9 mm combined thickness. Trace fluid within the cervical canal. Punctate cervical calcifications. Anterior, right intramural fibroid measuring 2.6 x 2.2 x 2.5 centimeters. Ovaries: The right ovary measures 3.0 x 2.5 x 2.0 cm, with a calculated ovarian volume of 8 cc. The left ovary is not well visualized due to overlying bowel gas. No adnexal masses visualized. Known right-sided corpus luteum not demonstrated on this exam. Other: No pathologic free abdominal or pelvic fluid. IMPRESSION: 1. Left ovary not visualized. No adnexal mass. 2. Trace fluid within the cervix, nonspecific. We strive to produce accurate, complete, and clear reports of imaging services. To assist us in improving patient care, this report was composed using standard report templates and voice recognition software. Therefore, it may contain abnormal punctuation, insertions and/or omissions. Occasional wrong-word or sound-alike substitutions may occur. Though we review the report and make efforts to correct it, we do recommend that the report be read carefully in proper context to recognize any text inaccuracies. Dictated by: Jim Caballero M.D. on 12/26/2022 at 15:13 Approved by: Jim Caballero M.D. on 12/26/2022 at 15:18
[2022-12-26] MEDS: MORPHINE 4 MG/ML INJ IV (16:08)
--- NOTE | 2022-12-26 16:14 | DI.US.S_ITS ---
PROCEDURE: US ABDOMEN LIMITED INDICATIONS: FOLLOW UP CT - CHOLELITHIASIS TECHNIQUE: Real-time focused scanning was performed of the abdomen, with image documentation. COMPARISON: [facility], CT, CT ABDOMEN PELVIS W CON, 12/26/2022, 12:32. FINDINGS: There is a 0.8 cm stone in the gallbladder neck which does not move with change in patient position. The gallbladder wall is normal thickness and nontender. There is no pericholecystic fluid. No intra or extrahepatic biliary dilatation. The visible portions of the liver are normal. There is appropriate direction of flow in the portal vein. The proximal pancreas demonstrates slight increased echogenicity of the head. No ductal dilatation. The body and tail are not well seen. IMPRESSION: 1. Cholelithiasis without sonographic evidence of acute cholecystitis. 2. Increased echogenicity in the region of the pancreatic head may indicate mild pancreatitis. Correlate with labs. Dictated by: Laura Crow M.D. on 12/26/2022 at 18:16 Approved by: Laura Crow M.D. on 12/26/2022 at 18:19
== END 2022-12-26 18:45 | disposition home or self-care (01) ==
PROVIDERS: Emergency Medicine; Emergency Provider Student in an Organized Health Care Education/Training Program; PCP Family Medicine
DX: R10.31 Right lower quadrant pain (principal); Z20.822 Contact with and (suspected) exposure to COVID-19
CPT/HCPCS: 36415; 74177; 76705; 76830; 76856; 80053; 81001; 81003; 81025; 83690; 85025; 87635; 93005; 93975; 96361; 96374; 96375; 99284; C9803; J1885; J2270; J2405